=== PATIENT | male | born 1955 | race Caucasian/White ===

== ENCOUNTER 2018-07-24 20:44 | Emergency (ER) | payer BC ==
[2018-07-24 20:50] VITALS: BP 156/92
--- NOTE | 2018-07-24 21:07 | EDPHY ---
H & P Time Seen by Provider: 07/24/18 20:58 HPI/ROS: CHIEF COMPLAINT: Right hand laceration HISTORY OF PRESENT ILLNESS: Cut on a broken glass at about 7:00 p.m. Tonight. Laceration is at the base of the right small finger on the volar surface. Denies numbness or tingling distally but does have inability to flex. Denies foreign body sensation. REVIEW OF SYSTEMS: As above PAST MEDICAL HISTORY: Appendectomy and left wrist surgery, tetanus up-to-date Social history: Visiting from [place], [facility] until the 10th of this month. General Appearance: Alert and conversant, cooperative. Volar laceration on the right hand at the base of the small finger. Normal 2 point discrimination and capillary refill distally. Cannot flex at the MCP or at the D IP. Normal extension. Emergency Department course/MDM: Procedure: Laceration repair. Verbal consent was obtained from the patient. The 1 cm laceration on the volar right hand small finger base was anesthetized using 0.5% bupivacaine without epinephrine. The wound was irrigated with standard emergency department protocol, draped and explored. There were no deep structures involved. No foreign body found. Tendon was not visualized. The wound was repaired with 5 0 Prolene. The wound repair was simple. Excellent hemostasis was obtained. Wound care instructions were discussed and the patient was warned regarding scarring. The procedure was performed by myself. Alumifoam splint was applied and oral antibiotics. Patient is warned: Mandatory hand surgery referral for probable flexor tendon laceration. X-ray personally interpreted as negative for foreign body. Discussed with Justin at 2122 will see in office tomorrow. Smoking Status: Never smoked Constitutional: Initial Vital Signs Temperature (C) 37.0 C 07/24/18 20:46 Heart Rate 78 07/24/18 20:46 Respiratory Rate 16 07/24/18 20:46 Blood Pressure 156/92 H 07/24/18 20:46 O2 Sat (%) 94 07/24/18 20:46 O2 Delivery Mode Room Air Allergies/Adverse Reactions: No Known Allergies Allergy (Unverified 07/24/18 20:50) Home Medications: Medication Instructions Recorded Cephalexin [Keflex] 500 mg PO QID #28 cap 07/24/18 MDM/Departure - Depart Disposition: Home, Routine, Self-Care Clinical Impression: Laceration of right hand involving tendon Qualifiers: Encounter type: initial encounter Qualified Code(s): S61.411A - Laceration without foreign body of right hand, initial encounter Condition: Good Instructions: Laceration (ED), Tendon Laceration (ED) Additional Instructions: Call Dr. Anderson hand surgeon for office evaluation tomorrow, you probably cut a flexor tendon in your right small finger. Prescriptions: Cephalexin [Keflex] 500 mg PO QID #28 cap Referrals: Craig Anderson MD [Medical Doctor] - 1 day without fail
[2018-07-24] MEDS ORDERED: CEPHALEXIN 500MG PREPACK#4 BTL TAKEHOME ONE (21:08)
== END 2018-07-24 21:30 | disposition home or self-care (01) ==
PROC: 0HQFXZZ Repair Right Hand Skin, External Approach (ICD-10-PCS; principal; 2018-07-24)
DX: S61.411A Laceration without foreign body of right hand, initial encounter (principal); W25.XXXA Contact with sharp glass, initial encounter; Y92.9 Unspecified place or not applicable
CPT/HCPCS: L3925